=== PATIENT | male | born 1970 | race African-American/Black ===

== ENCOUNTER 2019-06-12 07:23 | Inpatient (IN) | payer OTHER ==
[~2019-06-12] VITALS: Ht 182.9 cm; Wt 108.0 kg
[2019-06-12 07:25] VITALS: BP 163/101
[2019-06-12] MEDS ORDERED: METFORMIN HCL850 M1 ORAL (07:27)
[2019-06-12] MEDS ORDERED: CEPHALEXIN500 MG ORAL (07:34)
[2019-06-12] MEDS ORDERED: LORATADINE10 M1 PO (07:34)
--- NOTE | 2019-06-12 08:02 | Emergency Room Report ---
History of Present Illness General Chief Complaint: Shortness of breath Source: Patient Present Illness HPI Patient is a 49-year-old male presented after increased shortness of breath and lower extremity swelling. He reports having increased cough for the past few days. He reports having a prior history of diabetes. He denies having any definite heart problems. He reports having significant swelling to both lower extremities for many weeks. He reports having increased scrotal swelling as well as some abdominal swelling. He denies any prior history of liver disease. Allergies: Coded Allergies: No Known Allergies (Unverified , 06/12/19) Patient History Reviewed Nursing Documentation: PMH: Agreed; PSxH: Agreed Nursing Documentation-PM Past Medical History: No History, Except For Hx Cardiac Problems: Yes Hx Hypertension: Yes Hx Diabetes: Yes Review of Systems All Other Systems: negative except mentioned in HPI Physical Exam Vital Signs Date Time Temp Pulse Resp B/P (MAP) Pulse Ox O2 Delivery O2 Flow Rate FiO2 06/12/19 07:22 99.3 107 16 176/118 (137) 99 Room Air Sp02 EP Interpretation: reviewed, normal General Appearance: normal inspection, alert, mild distress, Chronically Ill Head: atraumatic ENT: normal ENT inspection, hearing grossly normal, normal voice Neck: normal inspection, full range of motion, supple, no bony tend Respiratory: normal inspection, lungs clear, normal breath sounds, no respiratory distress, no retraction, no wheezing Cardiovascular #1: regular rate, rhythm, no edema Gastrointestinal: normal inspection, normal bowel sounds, non tender, soft, no guarding, no hernia Genitourinary: no CVA tenderness Musculoskeletal: normal inspection, back normal, normal range of motion Neurologic: normal inspection, alert, oriented x3, responsive, 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 Differential diagnosis include is not limited to myocardial infarction, congestive heart failure, pneumonia, myocarditis among others. Because of complexity of patient's case laboratory tests and imaging studies were ordered. Patient is noted to have some increased shortness of breath associated with lower extremity swelling and edema. EKG interpreted by me showed poor R wave progression as well as evidence of prior myocardial injury. He had bifascicular block. Patient was given diuretics as well as medications for elevated temperature. Patient was started on antibiotics. He appears to be in some mild respiratory distress. Patient will be hospitalized for further management of likely congestive heart failure. Dr. Tree Sommer was contacted for inpatient management Labs Test 06/12/19 07:30 White Blood Count 5.6 K/UL (4.8-10.8) Red Blood Count 4.07 M/UL (4.70-6.10) Hemoglobin 11.7 G/DL (14.2-18.0) Hematocrit 35.8 % (42.0-52.0) Mean Corpuscular Volume 88 FL (80-99) Mean Corpuscular Hemoglobin 28.7 PG (27.0-31.0) Mean Corpuscular Hemoglobin Concent 32.7 G/DL (32.0-36.0) Red Cell Distribution Width 12.9 % (11.6-14.8) Platelet Count 293 K/UL (150-450) Mean Platelet Volume 6.5 FL (6.5-10.1) Neutrophils (%) (Auto) 69.2 % (45.0-75.0) Lymphocytes (%) (Auto) 18.3 % (20.0-45.0) Monocytes (%) (Auto) 6.8 % (1.0-10.0) Eosinophils (%) (Auto) 4.0 % (0.0-3.0) Basophils (%) (Auto) 1.7 % (0.0-2.0) Prothrombin Time 12.0 SEC (9.30-11.50) Prothromb Time International Ratio 1.1 (0.9-1.1) Activated Partial Thromboplast Time 29 SEC (23-33) Sodium Level 140 MMOL/L (136-145) Potassium Level 3.8 MMOL/L (3.5-5.1) Chloride Level 102 MMOL/L (98-107) Carbon Dioxide Level 32 MMOL/L (21-32) Anion Gap 7 mmol/L (5-15) Blood Urea Nitrogen 20 mg/dL (7-18) Creatinine 2.3 MG/DL (0.55-1.30) Estimat Glomerular Filtration Rate 36.8 mL/min (>60) Glucose Level 318 MG/DL (74-106) Calcium Level 8.7 MG/DL (8.5-10.1) Total Bilirubin 0.3 MG/DL (0.2-1.0) Aspartate Amino Transf (AST/SGOT) 34 U/L (15-37) Alanine Aminotransferase (ALT/SGPT) 40 U/L (12-78) Alkaline Phosphatase 356 U/L (46-116) Troponin I 0.555 ng/mL (0.000-0.056) Pro-B-Type Natriuretic Peptide 9229 pg/mL (0-125) Total Protein 7.7 G/DL (6.4-8.2) Albumin 2.1 G/DL (3.4-5.0) Globulin 5.6 g/dL Albumin/Globulin Ratio 0.4 (1.0-2.7) EKG Diagnostic Results Rate: tachycardiac - 108 Rhythm: NSR ST Segments: no acute changes Last Vital Signs Date Time Temp Pulse Resp B/P (MAP) Pulse Ox O2 Delivery O2 Flow Rate FiO2 06/12/19 07:22 99.3 107 16 176/118 (137) 99 Room Air Status: improved Disposition: ADMITTED INPATIENT Condition: Serious Bhaskar Carrington MD Jun 12, 2019 08:01
[2019-06-12] MEDS ORDERED: cefTRIAXone 1 GM in NS 55 ML IV SCH (08:15)
[2019-06-12] MEDS ORDERED: Albuterol ud Inhalation HHN ONE (08:15)
[2019-06-12] MEDS ORDERED: Vancomycin 1.5 GM in NS 275 ML IVPB ONE (08:15)
[2019-06-12] MEDS ORDERED: Ipratropium 0.02% Inh Soln 2.5ml UD HHN ONE (08:15)
[2019-06-12 08:22] LABS: BASOPHILS % (AUTO) 1.7 % (0.0-2.0); HEMATOCRIT 35.8 % (42.0-52.0); HEMOGLOBIN 11.7 G/DL (14.2-18.0); LYMPHOCYTES % (AUTO) 18.3 % (20.0-45.0); MEAN CORPUSCULAR VOLUME 88 FL (80-99); MONOCYTES % (AUTO) 6.8 % (1.0-10.0); NEUTROPHILS % (AUTO) 69.2 % (45.0-75.0); PLATELET COUNT 293 K/UL (150-450); RED BLOOD COUNT 4.07 M/UL (4.70-6.10); RED CELL DISTRIBUTION WIDTH 12.9 % (11.6-14.8); WHITE BLOOD COUNT 5.6 K/UL (4.8-10.8)
[2019-06-12 08:27] LABS: INR 1.1 (0.9-1.1)
[2019-06-12 08:33] LABS: ANION GAP 7 mmol/L (5-15); BLOOD UREA NITROGEN 20 mg/dL (7-18); CALCIUM 8.7 MG/DL (8.5-10.1); CARBON DIOXIDE 32 MMOL/L (21-32); CHLORIDE 102 MMOL/L (98-107); CREATININE 2.3 MG/DL (0.55-1.30); POTASSIUM 3.8 MMOL/L (3.5-5.1); SODIUM 140 MMOL/L (136-145)
[2019-06-12 08:43] LABS: ALANINE AMINOTRANSFERASE 40 U/L (12-78); ALBUMIN 2.1 G/DL (3.4-5.0); ALBUMIN/GLOBULIN RATIO 0.4 (1.0-2.7); ALKALINE PHOSPHATASE 356 U/L (46-116); ASPARTATE AMINO TRANSFERASE 34 U/L (15-37); BILIRUBIN,TOTAL 0.3 MG/DL (0.2-1.0)
[2019-06-12] MEDS ORDERED: Aspirin Baby 81mg ORAL ONE (09:00)
[2019-06-12] MEDS ORDERED: Acetaminophen 500mg (ES) tab ORAL ONE (09:00)
[2019-06-12 09:29] LABS: APPEARANCE,URINE CLEAR; BILIRUBIN, URINE NEGATIVE (NEGATIVE); COLOR,URINE PALE YELLOW; GLUCOSE, URINE (UA) 4+ (NEGATIVE); KETONES,URINE NEGATIVE (NEGATIVE); LEUKOCYTE ESTERASE ,URINE NEGATIVE (NEGATIVE); NITRITE,URINE NEGATIVE (NEGATIVE); PH,URINE 6 (4.5-8.0); PROTEIN,URINE 4+ (NEGATIVE); UROBILINOGEN,URINE NORMAL MG/DL (0.0-1.0)
[2019-06-12 09:30] VITALS: BP 173/108
--- NOTE | 2019-06-12 10:06 | Diagnostic Imaging Report ---
EXAM: XR Chest, 1 View CLINICAL HISTORY: Shortness of breath TECHNIQUE: Frontal view of the chest. COMPARISON: No relevant prior studies available. FINDINGS: Lungs: Subsegmental atelectasis versus infiltrates in bilateral lung bases. Pulmonary vascular congestion. Pleural space: Bilateral mild to moderate layering pleural effusions. Heart: Mild Cardiomegaly Mediastinum: Unremarkable. Bones joints: Unremarkable. Tubes, lines and devices: Telemetry leads overlie the thorax. IMPRESSION: 1. Findings suggesting CHF, with mild cardiomegaly, pulmonary vascular congestion, and bilateral layering pleural effusions. 2. Subsegmental atelectasis versus infiltrates in bilateral lung bases.
[2019-06-12 11:02] VITALS: BP 130/77
[2019-06-12 11:46] VITALS: BP 134/80
[2019-06-12] MEDS ORDERED: Zolpidem 5mg tab ORAL PRN (12:15)
[2019-06-12] MEDS ORDERED: Milk of Magnesia 30ml Ud ORAL PRN (12:15)
[2019-06-12] MEDS: NovoLOG Insulin Flexpen SUBQ SCH ×3 (13:27→21:36)
[2019-06-12 15:45] VITALS: BP 118/84
[2019-06-12] MEDS ORDERED: Piperacillin/Tazobactam 3.375 GM in NS 110 ML IVPB SCH (17:00)
[2019-06-12] MEDS: Guaifenesin/DM 10ml syrup ORAL PRN (19:37)
[2019-06-12 20:00] VITALS: BP 159/107
--- NOTE | 2019-06-12 21:09 | History & Physical ---
History and Physical History & Physicial chart reviewed orders entered full note will be dictated Tree Sommer MD Jun 12, 2019 21:09
[2019-06-13] VITALS: BP 136/92
[2019-06-13 04:00] VITALS: BP 141/95
--- NOTE | 2019-06-13 05:00 | Consultation ---
DATE OF CONSULTATION: 06/12/2019 INFECTIOUS DISEASE CONSULTATION CONSULTING PHYSICIAN: Frederick Sommer M.D. PRIMARY ATTENDING PHYSICIAN: Tree Sommer M.D. REASON FOR CONSULT: Pneumonia. HISTORY OF PRESENT ILLNESS: The patient is a 49-year-old male, admitted today from home complaining of shortness of breath, cough, and leg swelling. The patient had these symptoms for a few weeks. He had a visit to a clinic and gets antibiotic for probable pneumonia without improvement. PAST MEDICAL HISTORY: Significant for diabetes mellitus and hypertension. ALLERGIES: No known drug allergies. MEDICATIONS: Got a dose of ceftriaxone in the ER. Getting aspirin, Lasix, Zosyn, famotidine, insulin, and Zofran. SOCIAL HISTORY: . Denies alcohol, drug abuse, or smoking. REVIEW OF SYSTEMS: No fever. No chills. Has nonproductive cough, shortness of breath, swelling of legs scrotum, abdominal distention. No problem passing urine. PHYSICAL EXAMINATION: VITAL SIGNS: Temperature 98, pulse 98, blood pressure 118/84. No fever since admission. HEAD AND NECK: [place] conjunctivae. No oral lesion. HEART: Normal rate. LUNGS: Clear. ABDOMEN: Distended. EXTREMITIES: Edema of legs. : Scrotal edema. LABORATORY DATA: Sodium 140, potassium 3.6, chloride 102, bicarb 32, BUN 20, and creatinine 2.6. Glucose is 318. Alkaline phosphatase is 356. Troponin 0.555. BNP is 9229. Urine toxicology is negative. UA - rbc's too numerous to count, wbc's 5 to 10. WBC 5.6, hemoglobin 11.7, hematocrit 35.8, and platelets 293,000. Chest x-ray shows cardiomegaly, pulmonary congestion, pleural effusion, subsegmental atelectasis versus infiltrate in bilateral lung bases. IMPRESSION: Atelectasis and/or pneumonia in right bases, has CHF, acute renal failure, elevated troponin, diabetes mellitus plus hyperglycemia, and hypertension. RECOMMENDATION: Discontinue Zosyn. Continue Rocephin. We will follow up the cultures and clinical course. So far, influenza test is negative. At the end of my exam, I thank Dr. Sommer for involving me in the care of this patient. Frederick Sommer M.D. DR: SHAWNA JOB#: [id number] CC: GEN
[2019-06-13] MEDS: NovoLOG Insulin Flexpen SUBQ SCH ×4 (06:30→21:36)
[2019-06-13 08:00] VITALS: BP 151/90
[2019-06-13] MEDS: cefTRIAXone 1 GM in D5W 55 ML IVPB SCH (08:11)
[2019-06-13] MEDS: Aspirin Baby 81mg ORAL SCH (08:12)
[2019-06-13 08:41] LABS: ANION GAP 10 mmol/L (5-15); BLOOD UREA NITROGEN 19 mg/dL (7-18); CALCIUM 8.3 MG/DL (8.5-10.1); CARBON DIOXIDE 28 MMOL/L (21-32); CHLORIDE 103 MMOL/L (98-107); CHOLESTEROL 163 MG/DL (< 200); CREATININE 2.2 MG/DL (0.55-1.30); HDL CHOLESTEROL 42 MG/DL (40-60); POTASSIUM 3.7 MMOL/L (3.5-5.1); SODIUM 141 MMOL/L (136-145); TRIGLYCERIDES 99 MG/DL (30-150)
--- NOTE | 2019-06-13 10:54 | General Progress Note ---
Assessment/Plan Problem List: (1) Elevated troponin ICD Codes: R79.89 - Other specified abnormal findings of blood chemistry SNOMED: 160991372, 299057920, 121914849 (2) Pulmonary edema ICD Codes: J81.1 - Chronic pulmonary edema SNOMED: 85754278 (3) Renal insufficiency ICD Codes: N28.9 - Disorder of kidney and ureter, unspecified SNOMED: 965668438, 597907280 (4) Pneumonitis ICD Codes: J18.9 - Pneumonia, unspecified organism SNOMED: 686273811, 538154206, 646946632 Assessment/Plan: abxs diuresis cardio consult may need renal biopsy Subjective Allergies: Coded Allergies: No Known Allergies (Unverified , 06/12/19) Subjective In NAD Objective Last 24 Hour Vital Signs Date Time Temp Pulse Resp B/P (MAP) Pulse Ox O2 Delivery O2 Flow Rate FiO2 06/13/19 09:00 Nasal Cannula 2.0 06/13/19 08:41 101.4 06/13/19 08:00 102.2 101 20 151/90 (110) 97 06/13/19 08:00 98 06/13/19 04:00 97.9 97 18 141/95 (110) 93 06/13/19 04:00 98 06/13/19 00:00 98.4 91 18 136/92 (107) 99 06/13/19 00:00 90 06/12/19 21:00 Nasal Cannula 2.0 06/12/19 20:00 106 06/12/19 20:00 100.6 107 20 159/107 (124) 94 06/12/19 16:00 100 06/12/19 15:47 2.0 06/12/19 15:45 98.0 98 20 118/84 (95) 98 06/12/19 12:00 87 06/12/19 11:46 98.9 89 20 134/80 (98) 96 06/12/19 11:44 Nasal Cannula 2.0 06/12/19 11:44 2.0 06/12/19 11:27 98.0 90 13 123/76 99 Nasal Cannula 2.0 28 06/12/19 11:02 98.1 89 17 130/77 99 Nasal Cannula 2.0 28 Intake and Output 06/12/19 06/13/19 19:00 07:00 Intake Total 810 ml Balance 810 ml Intake Oral 480 ml IV Total 330 ml # Voids 4 Laboratory Tests 06/13/19 06:55: Sodium Level 141, Potassium Level 3.7, Chloride Level 103, Carbon Dioxide Level 28, Anion Gap 10, Blood Urea Nitrogen 19H, Creatinine 2.2H, Estimat Glomerular Filtration Rate 38.8, Glucose Level 100#, Hemoglobin A1c 9.3H, Calcium Level 8.3L, Troponin I 0.595H, Triglycerides Level 99, Cholesterol Level 163, LDL Cholesterol 98, HDL Cholesterol 42, Cholesterol/HDL Ratio 3.9, Thyroid Stimulating Hormone (TSH) 1.305 Height (Feet): 6 Height (Inches): 0.00 Weight (Pounds): 238 Cardiovascular: normal rate Respiratory/Chest: lungs clear Edema: 4+ Generalized Tree Sommer MD Jun 13, 2019 10:54
[2019-06-13 11:43] VITALS: BP 122/84
--- NOTE | 2019-06-13 13:23 | Cardiology Progress Note ---
Subjective Subjective [id number] Objective Last 24 Hour Vital Signs Date Time Temp Pulse Resp B/P (MAP) Pulse Ox O2 Delivery O2 Flow Rate FiO2 06/13/19 12:00 88 06/13/19 11:43 100.0 84 20 122/84 (97) 99 06/13/19 09:00 Nasal Cannula 2.0 06/13/19 08:41 101.4 06/13/19 08:00 102.2 101 20 151/90 (110) 97 06/13/19 08:00 98 06/13/19 04:00 97.9 97 18 141/95 (110) 93 06/13/19 04:00 98 06/13/19 00:00 98.4 91 18 136/92 (107) 99 06/13/19 00:00 90 06/12/19 21:00 Nasal Cannula 2.0 06/12/19 20:00 106 06/12/19 20:00 100.6 107 20 159/107 (124) 94 06/12/19 16:00 100 06/12/19 15:47 2.0 06/12/19 15:45 98.0 98 20 118/84 (95) 98 Intake and Output 06/12/19 06/13/19 19:00 07:00 Intake Total 810 ml Balance 810 ml Intake Oral 480 ml IV Total 330 ml # Voids 4 Laboratory Tests Test 06/13/19 06:55 Sodium Level 141 MMOL/L (136-145) Potassium Level 3.7 MMOL/L (3.5-5.1) Chloride Level 103 MMOL/L (98-107) Carbon Dioxide Level 28 MMOL/L (21-32) Anion Gap 10 mmol/L (5-15) Blood Urea Nitrogen 19 mg/dL (7-18) H Creatinine 2.2 MG/DL (0.55-1.30) H Estimat Glomerular Filtration Rate 38.8 mL/min (>60) Glucose Level 100 MG/DL (74-106) # Hemoglobin A1c 9.3 % (4.3-6.0) H Calcium Level 8.3 MG/DL (8.5-10.1) L Troponin I 0.595 ng/mL (0.000-0.056) Triglycerides Level 99 MG/DL (30-150) Cholesterol Level 163 MG/DL (< 200) LDL Cholesterol 98 mg/dL (<100) HDL Cholesterol 42 MG/DL (40-60) Cholesterol/HDL Ratio 3.9 (3.3-4.4) Thyroid Stimulating Hormone (TSH) 1.305 uiU/mL (0.358-3.740) Microbiology Date/Time Source Procedure Growth Status 06/12/19 07:30 Nasal Nares - Final Complete 06/12/19 07:30 Nasal Nares - Final Complete Charmaine Echevarria MD Jun 13, 2019 13:23
[2019-06-13 16:00] VITALS: BP 157/87
--- NOTE | 2019-06-13 16:30 | History and Physical Report ---
DATE OF ADMISSION: 06/12/2019 CHIEF COMPLAINT: Cough, sputum production, and increased leg swelling. HISTORY OF PRESENT ILLNESS: This is a 49-year-old male, who has been coughing for about a week now and has had some shortness of breath, also increased leg swelling. It is not clear how long he has had leg edema, but he stated about 2 months although he has stasis changes. The patient was seen in the emergency room, was diagnosed with fluid overload and possibility of pneumonia and he was admitted. PAST MEDICAL HISTORY: History of diabetes mellitus, which has not been very well controlled. He denies hypertension although is in his records. He has not had any retinopathy, no laser surgery in his eyes. MEDICATIONS: Reviewed in the EMR. ALLERGIES: No known drug allergies. SOCIAL HISTORY: The patient lives at home with some family member. No history of smoking or alcohol abuse. REVIEW OF SYSTEMS: As above. PHYSICAL EXAMINATION: GENERAL: The patient is a moderately obese male, in no acute distress. VITAL SIGNS: Blood pressure is 118/84, pulse is 98, temperature 98.8. HEENT: [place] conjunctivae. Anicteric sclerae. NECK: Supple. LUNGS: Clear to auscultation. HEART: S1, S2 without murmurs or rubs. ABDOMEN: Soft, nontender. EXTREMITIES: Bilateral pedal edema with stasis changes. LABORATORY FINDINGS: CBC shows WBC of 5600, hematocrit is 35.8, hemoglobin is 7.7, platelets 293,000. Chemistry panel shows a sodium 140, potassium 3.8, chloride 102, BUN 20, creatinine 2.3, and blood sugar is 318. ProBNP was . Troponin was 0.55. ASSESSMENT: This is a 49-year-old male, who is admitted with shortness of breath, cough, possibility of pneumonia, but also has evidence of fluid overload, possibility of congestive heart failure. This factors includes diabetes and hypertension, but it has not been controlled. Also, his UA is showing blood red cells and also WBCs and significant proteinuria, so nephrotic syndrome has to be ruled out out, but the patient could have also nephritic syndrome. Based on the fact that he has also red cells and white cells in the urine. PLAN: The patient will be on antibiotics, IV diuretics. Cardiology consultation will be obtained. The patient UA needs to be repeated once he is treated with antibiotics and he may eventually need a kidney biopsy. If he continues to have active sediment in his urine, this can be done as an outpatient. Tree Sommer M.D. DR: KATE JOB#: [id number] CC:
--- NOTE | 2019-06-13 17:45 | Consultation ---
DATE OF CONSULTATION: 06/13/2019 CARDIOLOGY CONSULTATION This consultation is done as a coverage for Dr. Macario Black. REQUESTING PHYSICIAN: Tree Sommer M.D. REASON FOR CONSULTATION: Fluid overload, congestive heart failure. HISTORY OF PRESENT ILLNESS: Taken from the patient. The patient is lethargic and he has difficulties answering the question. He reported that he has worsening edema, which he had for a long time and he was not taking water pills as prescribed by his doctor. The patient stated he has hypertension and diabetes and when he asked his doctor why he has edema was told that because of diabetes. The patient denies any chest pain. The patient denies cardiac history, he was not seeing Cardiology in the past. The patient has orthopnea, lethargy, severe swelling of his abdomen, genitals, and lower extremity. ALLERGIES: Not reported. SOCIAL HISTORY: He denies using drugs, smoking, alcohol. REVIEW OF SYSTEMS: Negative for fever, but he has cough and he is very lethargic and tired. His ambulation is very limited, but he denies chest pain. PHYSICAL EXAMINATION: GENERAL: This is middle-aged male, looks very ill and lethargic. VITAL SIGNS: Blood pressure is 150/90, heart rate is 100 beats per minute, temperature is 102.2 max. His oxygen saturation on 2 liters is 97%. HEENT: PERRLA. EOMI. Lethargic. NECK: Neck veins are very distended. His carotid upstroke is palpable without bruit. LUNGS: He has crackles bilaterally and decreased breath sounds posteriorly. HEART: Regular and very distant S1. PMI is not palpable. ABDOMEN: Distended. Ascites is present. Genital is swollen. EXTREMITIES: Lower extremities had severe swelling with Cobweb appearance of the distal ankle and pretibial areas compatible with chronic edema. NEUROLOGIC: He moves all extremities, but he appears to be lethargic. LABORATORY AND DIAGNOSTIC DATA: EKG shows sinus rhythm with bifascicular block, left anterior and right bundle branch block. His chest x-ray showed pulmonary congestion, cardiomegaly, in bilateral lung bases. His labs are all reviewed and significant for creatinine 2.3 yesterday and 2.2 today. Hemoglobin A1c 9.3. His calcium is 8.3. His troponin is White count is 5.6, platelets are 293, and hemoglobin 11.7. His INR is 1.1. His urinalysis shows a lot of red cells. IMPRESSION AND RECOMMENDATION: The patient definitely has fluid overload, whether it is cardiac in origin is difficult to say. It is not impossible that he has cardiomyopathy, which precipitated right and left heart failure and kidney disease. It could be also that he has a primary renal problem caused by his diabetes and because of that, he developed edema. He has very abnormal urinalysis and workup for urinary etiology of his condition is in the process. He also is febrile so he might have infectious component to his kidney disease and fluid overload and he might be pulmonary or coming from the urine. From cardiac standpoint; however, the troponin elevation signifies cardiac damage versus chronic severe renal disease. His EKG does not show ischemic changes and he does not have chest pain. His cardiac function is yet to be assessed and based on that we are going to progress with further plan of management. The concern as the patient is lethargic is very high and I hope that he does not have encephalopathy associated with his congestive heart failure and kidney disease as well. He also has elevated alkaline phosphatase, which most likely correlating with congestive liver and not primary liver disease. I am going to order echocardiogram. I agree with Marcelle. We are going to follow this patient closely. Dr. Black is going to resume the care tomorrow. Thank you for your consultation. Charmaine Echevarria M.D. DR: Devora JOB#: [id number] CC:
[2019-06-13 20:00] VITALS: BP 145/84
[2019-06-13] MEDS: Guaifenesin/DM 10ml syrup ORAL PRN (22:55)
[2019-06-14 00:18] VITALS: BP 121/84
[2019-06-14 04:46] VITALS: BP 149/99
[2019-06-14] MEDS: NovoLOG Insulin Flexpen SUBQ SCH ×5 (06:39→21:00)
[2019-06-14 08:00] VITALS: BP 147/96
[2019-06-14] MEDS: Aspirin Baby 81mg ORAL SCH (09:22)
[2019-06-14] MEDS: cefTRIAXone 1 GM in D5W 55 ML IVPB SCH (09:23)
[2019-06-14] MEDS: Guaifenesin/DM 10ml syrup ORAL PRN ×2 (09:33→23:04)
--- NOTE | 2019-06-14 10:00 | Infectious Diseases Prog Note ---
Assessment/Plan Assessment/Plan IMPRESSION: Atelectasis and/or pneumonia in right bases, CHF, acute renal failure, elevated troponin, diabetes mellitus plus hyperglycemia, Hypertension. RECOMMENDATION: Continue Rocephin. We will follow up the cultures and clinical course repeat CXR Subjective ROS Limited/Unobtainable: No Constitutional: Reports: other - had fever yesterday Respiratory: Reports: productive cough Cardiovascular: Reports: other - orthopnea Genitourinary: Reports: no symptoms Neurologic: Reports: no symptoms Allergies: Coded Allergies: No Known Allergies (Unverified , 06/12/19) Objective Vital Signs Last 24 Hour Vital Signs Date Time Temp Pulse Resp B/P (MAP) Pulse Ox O2 Delivery O2 Flow Rate FiO2 06/14/19 08:00 98.4 95 20 147/96 (113) 94 06/14/19 04:46 98.0 91 12 149/99 (116) 96 06/14/19 04:00 90 06/14/19 00:18 98.6 87 12 121/84 (96) 98 06/14/19 00:00 89 06/13/19 21:00 Nasal Cannula 2.0 06/13/19 20:00 98.2 95 16 145/84 (104) 98 06/13/19 20:00 98 06/13/19 16:00 98.8 100 20 157/87 (110) 98 06/13/19 16:00 101 06/13/19 12:00 88 06/13/19 11:43 100.0 84 20 122/84 (97) 99 Height (Feet): 6 Height (Inches): 0.00 Weight (Pounds): 238 HEENT: mucous membranes moist Respiratory/Chest: lungs clear Cardiovascular: normal rate Abdomen: soft, non tender Genitourinary: other - scrotal edema Extremities: other - sever leg edema Neurologic/Psychiatric: alert, oriented x 3, responsive Microbiology Date/Time Source Procedure Growth Status 06/12/19 07:45 Blood Blood Culture - Preliminary NO GROWTH AFTER 24 HOURS Resulted 06/12/19 07:30 Blood Blood Culture - Preliminary NO GROWTH AFTER 24 HOURS Resulted 06/12/19 07:30 Nasal Nares - Final Complete 06/12/19 07:30 Nasal Nares - Final Complete Current Medications Medications (Trade) Dose Ordered Sig/Calin Route PRN Reason Start Time Stop Time Status Last Admin Dose Admin Acetaminophen (Tylenol) 650 mg Q4H PRN ORAL Mild Pain/Temp > 100.5 06/12/19 15:30 07/12/19 15:29 06/13/19 21:33 Aspirin (ASA) 81 mg DAILY ORAL 06/13/19 09:00 07/13/19 08:59 06/14/19 09:22 Ceftriaxone Sodium 1 gm/ Dextrose 55 ml @ 110 mls/hr DAILY IVPB 06/13/19 09:00 06/20/19 08:59 06/14/19 09:23 Dextrose (Dextrose 50%) 25 ml Q30M PRN IV Hypoglycemia 06/12/19 12:15 07/12/19 12:14 Dextrose (Dextrose 50%) 50 ml Q30M PRN IV Hypoglycemia 06/12/19 12:15 07/12/19 12:14 Famotidine (Pepcid) 40 mg DAILY ORAL 06/12/19 13:00 07/12/19 12:59 06/14/19 09:22 Furosemide (Lasix) 40 mg EVERY 12 HOURS IV 06/12/19 21:00 07/12/19 20:59 06/14/19 09:23 Guaifenesin/ Dextromethorphan (Robitussin DM Syrup) 10 ml Q4H PRN ORAL For Cough 06/12/19 19:45 07/12/19 19:44 06/14/19 09:33 Insulin Aspart (NovoLOG) BEFORE MEALS AND HS SUBQ 06/12/19 12:30 07/12/19 12:29 06/14/19 06:39 Magnesium Hydroxide (Mom) 30 ml HSPRN PRN ORAL Constipation 06/12/19 12:15 07/12/19 12:14 Ondansetron HCl (Zofran) 4 mg Q6H PRN IVP Nausea & Vomiting 06/12/19 12:15 07/12/19 12:14 Zolpidem Tartrate (Ambien) 5 mg HSPRN PRN ORAL Insomnia 06/12/19 12:15 06/19/19 12:14 Frederick Sommer MD Jun 14, 2019 10:00
[2019-06-14 11:59] VITALS: BP 141/88
--- NOTE | 2019-06-14 13:42 | General Progress Note ---
Assessment/Plan Problem List: (1) Elevated troponin ICD Codes: R79.89 - Other specified abnormal findings of blood chemistry SNOMED: 208221463, 007478751, 151132037 (2) Pulmonary edema ICD Codes: J81.1 - Chronic pulmonary edema SNOMED: 09651890 (3) Renal insufficiency ICD Codes: N28.9 - Disorder of kidney and ureter, unspecified SNOMED: 503102362, 466278159 (4) Pneumonitis ICD Codes: J18.9 - Pneumonia, unspecified organism SNOMED: 376822451, 800001825, 288009783 Assessment/Plan: abxs diuresis cardio consult may need renal biopsy Subjective Allergies: Coded Allergies: No Known Allergies (Unverified , 06/12/19) Subjective In NAD Objective Last 24 Hour Vital Signs Date Time Temp Pulse Resp B/P (MAP) Pulse Ox O2 Delivery O2 Flow Rate FiO2 06/14/19 11:59 98.4 89 18 141/88 (105) 97 06/14/19 11:42 87 06/14/19 09:00 Nasal Cannula 2.0 06/14/19 08:00 98.4 95 20 147/96 (113) 94 06/14/19 07:39 94 06/14/19 04:46 98.0 91 12 149/99 (116) 96 06/14/19 04:00 90 06/14/19 00:18 98.6 87 12 121/84 (96) 98 06/14/19 00:00 89 06/13/19 21:00 Nasal Cannula 2.0 06/13/19 20:00 98.2 95 16 145/84 (104) 98 06/13/19 20:00 98 06/13/19 16:00 98.8 100 20 157/87 (110) 98 06/13/19 16:00 101 Intake and Output 06/13/19 06/14/19 19:00 07:00 Intake Total 480 ml 150 ml Output Total 1150 ml Balance -670 ml 150 ml Intake Oral 480 ml 150 ml Output Urine Total 1150 ml # Voids 4 Height (Feet): 6 Height (Inches): 0.00 Weight (Pounds): 238 Cardiovascular: normal rate Respiratory/Chest: lungs clear Edema: 4+ Generalized Tree Sommer MD Jun 14, 2019 13:42
--- NOTE | 2019-06-14 14:17 | Cardiology Report ---
APPROVED REPORT EXAM: Two-dimensional and M-mode echocardiogram with Doppler and color Doppler. M-Mode DIMENSIONS IVSd1.3 (0.7-1.1cm)Left Atrium (MM)4.3 (1.6-4.0cm) LVDd5.1 (3.5-5.6cm)Aortic Root3.2 (2.0-3.7cm) PWd1.5 (0.7-1.1cm)Aortic Cusp Exc.2.0 (1.5-2.0cm) IVSs1.3 cm LVDs4.3 (2.5-4.0cm) PWs1.6 cm Normal left ventricular chamber size. Anteroseptal wall, inferoseptal wall and basal to apical lateral wall hypokinesia, ischemic cardiomyopathy cannot be excluded. Left ventricular ejection fraction is estimated to be 40-45%. Small circumfrential pericardial effusion . Large pleural effusio . Mild left atrial enlargement. Right cardiac chamber sizes are within normal limits. Aortic valve calcification with normal cusp excursion . Mildly thickened mitral valve leaflets with normal excursion. Mild mitral annulus and aortic root calcification. IVC at 2.2 cm without physiologic collapse suggestive of increased RA pressure. A color flow and spectral Doppler study was performed and revealed: Mitral inflow velocities indicates possible pseudo normalization pattern implying moderately elevated left atrial pressure (Grade II ) Moderate mitral regurgitation. Mild tricuspid regurgitation. Tricuspid systolic velocities suggests peak right ventricular systolic pressure of 31mmHg. Mild pulmonic regurgitation .
--- NOTE | 2019-06-14 14:41 | Diagnostic Imaging Report ---
Indication: Cough Comparison: 06/12/2019 A single view chest radiograph was obtained. Findings: Interstitial edema demonstrated. Bilateral pleural effusions noted. The heart is mildly enlarged. IMPRESSION: Mild CHF. No change from the prior study
[2019-06-14 16:00] VITALS: BP 137/85
[2019-06-14 20:00] VITALS: BP 156/103
--- NOTE | 2019-06-14 20:14 | Cardiology Progress Note ---
Assessment/Plan Assessment/Plan chf systolic dysfucntion renal fialure abn torp diuretic bp still ok renal function better echo noted lv dysfcuntion not severe enought to need acei Subjective Cardiovascular: Denies: chest pain Respiratory: Reports: cough, shortness of breath Gastrointestinal/Abdominal: Denies: abdominal pain Genitourinary: Denies: burning Objective Last 24 Hour Vital Signs Date Time Temp Pulse Resp B/P (MAP) Pulse Ox O2 Delivery O2 Flow Rate FiO2 06/14/19 16:00 98.7 82 20 137/85 (102) 97 06/14/19 15:37 83 06/14/19 11:59 98.4 89 18 141/88 (105) 97 06/14/19 11:42 87 06/14/19 09:00 Nasal Cannula 2.0 06/14/19 08:00 98.4 95 20 147/96 (113) 94 06/14/19 07:39 94 06/14/19 04:46 98.0 91 12 149/99 (116) 96 06/14/19 04:00 90 06/14/19 00:18 98.6 87 12 121/84 (96) 98 06/14/19 00:00 89 06/13/19 21:00 Nasal Cannula 2.0 General Appearance: no apparent distress, alert, obese Cardiovascular: normal rate Respiratory/Chest: decreased breath sounds Abdomen: normal bowel sounds, non tender, soft Extremities: moderate edema Intake and Output 06/13/19 06/14/19 19:00 07:00 Intake Total 480 ml 150 ml Output Total 1150 ml Balance -670 ml 150 ml Intake Oral 480 ml 150 ml Output Urine Total 1150 ml # Voids 4 Microbiology Date/Time Source Procedure Growth Status 06/12/19 07:45 Blood Blood Culture - Preliminary NO GROWTH AFTER 24 HOURS Resulted 06/12/19 07:30 Blood Blood Culture - Preliminary NO GROWTH AFTER 24 HOURS Resulted 06/12/19 07:30 Nasal Nares - Final Complete 06/12/19 07:30 Nasal Nares - Final Complete Macario Black MD Jun 14, 2019 20:14
[2019-06-15] VITALS: BP_SYST 140; BP_SYST 152; BP_DIAS 82; BP_DIAS 98
[2019-06-15 04:00] VITALS: BP 152/93
[2019-06-15] MEDS: NovoLOG Insulin Flexpen SUBQ SCH ×3 (06:40→17:26)
[2019-06-15 08:00] VITALS: BP 131/88
[2019-06-15] MEDS: cefTRIAXone 1 GM in D5W 55 ML IVPB SCH (08:47)
[2019-06-15] MEDS: Aspirin Baby 81mg ORAL SCH (08:47)
[2019-06-15] MEDS: Guaifenesin/DM 10ml syrup ORAL PRN (08:48)
[2019-06-15 09:36] LABS: HEMATOCRIT 34.2 % (42.0-52.0); HEMOGLOBIN 11.2 G/DL (14.2-18.0); MEAN CORPUSCULAR VOLUME 86 FL (80-99); MONOCYTES % (AUTO) 11.9 % (1.0-10.0); NEUTROPHILS % (AUTO) 56.2 % (45.0-75.0); PLATELET COUNT 231 K/UL (150-450); RED BLOOD COUNT 3.97 M/UL (4.70-6.10); RED CELL DISTRIBUTION WIDTH 12.3 % (11.6-14.8); WHITE BLOOD COUNT 5.2 K/UL (4.8-10.8)
[2019-06-15 10:01] LABS: ALANINE AMINOTRANSFERASE 23 U/L (12-78); ALBUMIN 1.6 G/DL (3.4-5.0); ALBUMIN/GLOBULIN RATIO 0.3 (1.0-2.7); ALKALINE PHOSPHATASE 227 U/L (46-116); ANION GAP 3 mmol/L (5-15); ASPARTATE AMINO TRANSFERASE 22 U/L (15-37); BILIRUBIN,TOTAL 0.3 MG/DL (0.2-1.0); BLOOD UREA NITROGEN 18 mg/dL (7-18); CARBON DIOXIDE 34 MMOL/L (21-32); CHLORIDE 99 MMOL/L (98-107); CREATININE 1.9 MG/DL (0.55-1.30); POTASSIUM 3.4 MMOL/L (3.5-5.1); SODIUM 136 MMOL/L (136-145)
[2019-06-15 12:00] VITALS: BP 122/73
[2019-06-15] MEDS ORDERED: FUROSEMIDE40 MG ORAL (13:10)
--- NOTE | 2019-06-15 13:15 | General Progress Note ---
Assessment/Plan Problem List: (1) Elevated troponin ICD Codes: R79.89 - Other specified abnormal findings of blood chemistry SNOMED: 501166347, 223927565, 884621668 (2) Pulmonary edema ICD Codes: J81.1 - Chronic pulmonary edema SNOMED: 88098880 (3) Renal insufficiency ICD Codes: N28.9 - Disorder of kidney and ureter, unspecified SNOMED: 506178631, 533717705 (4) Pneumonitis ICD Codes: J18.9 - Pneumonia, unspecified organism SNOMED: 773544324, 917580866, 978126796 Assessment/Plan: Po lasix Dc today Subjective Allergies: Coded Allergies: No Known Allergies (Unverified , 06/12/19) Subjective In NAD Objective Last 24 Hour Vital Signs Date Time Temp Pulse Resp B/P (MAP) Pulse Ox O2 Delivery O2 Flow Rate FiO2 06/15/19 08:00 98.8 87 18 131/88 (102) 96 06/15/19 04:00 81 06/15/19 04:00 97.4 89 18 152/93 (112) 95 06/15/19 00:00 93 06/15/19 00:00 97.8 94 18 140/98 (112) 95 06/14/19 21:00 Nasal Cannula 2.0 06/14/19 20:00 98.4 93 18 156/103 (120) 97 06/14/19 20:00 90 06/14/19 16:00 98.7 82 20 137/85 (102) 97 06/14/19 15:37 83 Intake and Output 06/14/19 06/15/19 19:00 07:00 Intake Total 360 ml 120 ml Balance 360 ml 120 ml Intake Oral 360 ml 120 ml # Voids 3 3 Laboratory Tests 06/15/19 09:30: White Blood Count 5.2, Red Blood Count 3.97L, Hemoglobin 11.2L, Hematocrit 34.2L , Mean Corpuscular Volume 86, Mean Corpuscular Hemoglobin 28.2, Mean Corpuscular Hemoglobin Concent 32.7, Red Cell Distribution Width 12.3, Platelet Count 231, Mean Platelet Volume 6.6, Neutrophils (%) (Auto) 56.2, Lymphocytes (% ) (Auto) 22.0, Monocytes (%) (Auto) 11.9H, Eosinophils (%) (Auto) 9.0H, Basophils (%) (Auto) 1.0, Sodium Level 136, Potassium Level 3.4L, Chloride Level 99, Carbon Dioxide Level 34H, Anion Gap 3L, Blood Urea Nitrogen 18, Creatinine 1.9H, Estimat Glomerular Filtration Rate 45.9, Glucose Level 179H, Calcium Level 8.0L, Total Bilirubin 0.3, Aspartate Amino Transf (AST/SGOT) 22, Alanine Aminotransferase (ALT/SGPT) 23, Alkaline Phosphatase 227H, Total Protein 6.6, Albumin 1.6L, Globulin 5.0, Albumin/Globulin Ratio 0.3L Height (Feet): 6 Height (Inches): 0.00 Weight (Pounds): 238 Tree Sommer MD Jun 15, 2019 13:15
--- NOTE | 2019-06-15 13:34 | Diagnostic Imaging Report ---
APPROVED REPORT CPT Code: 78738 Present Symptoms Shortness of breath BILATERAL: Imaging reveals a patent deep venous system bilaterally. There is no evidence of thrombus within the femoral, popliteal or tibial segments. The greater saphenous veins are also within normal limits. Doppler indicates normal spontaneous flow within these segments.
--- NOTE | 2019-06-15 13:48 | Infectious Diseases Prog Note ---
Assessment/Plan Assessment/Plan IMPRESSION: Pulmonary edema CHF, EF=40-45% acute renal failure, elevated troponin, diabetes mellitus plus hyperglycemia, Hypertension. RECOMMENDATION: Agree with discharge without antibiotic Case was D/W primary MD Subjective ROS Limited/Unobtainable: Yes Constitutional: Denies: fever Allergies: Coded Allergies: No Known Allergies (Unverified , 06/12/19) Objective Vital Signs Last 24 Hour Vital Signs Date Time Temp Pulse Resp B/P (MAP) Pulse Ox O2 Delivery O2 Flow Rate FiO2 06/15/19 09:00 Nasal Cannula 2.0 06/15/19 08:00 98.8 87 18 131/88 (102) 96 06/15/19 04:00 81 06/15/19 04:00 97.4 89 18 152/93 (112) 95 06/15/19 00:00 93 06/15/19 00:00 97.8 94 18 140/98 (112) 95 06/14/19 21:00 Nasal Cannula 2.0 06/14/19 20:00 98.4 93 18 156/103 (120) 97 06/14/19 20:00 90 06/14/19 16:00 98.7 82 20 137/85 (102) 97 06/14/19 15:37 83 Height (Feet): 6 Height (Inches): 0.00 Weight (Pounds): 238 General Appearance: no acute distress HEENT: mucous membranes moist Respiratory/Chest: lungs clear Cardiovascular: normal rate Abdomen: soft, non tender Extremities: other - edema of legs Neurologic/Psychiatric: other - sleeping Laboratory Tests Test 06/15/19 09:30 White Blood Count 5.2 K/UL (4.8-10.8) Red Blood Count 3.97 M/UL (4.70-6.10) L Hemoglobin 11.2 G/DL (14.2-18.0) L Hematocrit 34.2 % (42.0-52.0) L Mean Corpuscular Volume 86 FL (80-99) Mean Corpuscular Hemoglobin 28.2 PG (27.0-31.0) Mean Corpuscular Hemoglobin Concent 32.7 G/DL (32.0-36.0) Red Cell Distribution Width 12.3 % (11.6-14.8) Platelet Count 231 K/UL (150-450) Mean Platelet Volume 6.6 FL (6.5-10.1) Neutrophils (%) (Auto) 56.2 % (45.0-75.0) Lymphocytes (%) (Auto) 22.0 % (20.0-45.0) Monocytes (%) (Auto) 11.9 % (1.0-10.0) H Eosinophils (%) (Auto) 9.0 % (0.0-3.0) H Basophils (%) (Auto) 1.0 % (0.0-2.0) Sodium Level 136 MMOL/L (136-145) Potassium Level 3.4 MMOL/L (3.5-5.1) L Chloride Level 99 MMOL/L (98-107) Carbon Dioxide Level 34 MMOL/L (21-32) H Anion Gap 3 mmol/L (5-15) L Blood Urea Nitrogen 18 mg/dL (7-18) Creatinine 1.9 MG/DL (0.55-1.30) H Estimat Glomerular Filtration Rate 45.9 mL/min (>60) Glucose Level 179 MG/DL (74-106) H Calcium Level 8.0 MG/DL (8.5-10.1) L Total Bilirubin 0.3 MG/DL (0.2-1.0) Aspartate Amino Transf (AST/SGOT) 22 U/L (15-37) Alanine Aminotransferase (ALT/SGPT) 23 U/L (12-78) Alkaline Phosphatase 227 U/L (46-116) H Total Protein 6.6 G/DL (6.4-8.2) Albumin 1.6 G/DL (3.4-5.0) L Globulin 5.0 g/dL Albumin/Globulin Ratio 0.3 (1.0-2.7) L Current Medications Medications (Trade) Dose Ordered Sig/Calin Route PRN Reason Start Time Stop Time Status Last Admin Dose Admin Acetaminophen (Tylenol) 650 mg Q4H PRN ORAL Mild Pain/Temp > 100.5 06/12/19 15:30 07/12/19 15:29 06/15/19 08:48 Aspirin (ASA) 81 mg DAILY ORAL 06/13/19 09:00 07/13/19 08:59 06/15/19 08:47 Ceftriaxone Sodium 1 gm/ Dextrose 55 ml @ 110 mls/hr DAILY IVPB 06/13/19 09:00 06/20/19 08:59 06/15/19 08:47 Dextrose (Dextrose 50%) 25 ml Q30M PRN IV Hypoglycemia 06/12/19 12:15 07/12/19 12:14 Dextrose (Dextrose 50%) 50 ml Q30M PRN IV Hypoglycemia 06/12/19 12:15 07/12/19 12:14 Famotidine (Pepcid) 40 mg DAILY ORAL 06/12/19 13:00 07/12/19 12:59 06/15/19 08:47 Furosemide (Lasix) 40 mg EVERY 12 HOURS IV 06/12/19 21:00 07/12/19 20:59 06/15/19 08:46 Guaifenesin/ Dextromethorphan (Robitussin DM Syrup) 10 ml Q4H PRN ORAL For Cough 06/12/19 19:45 07/12/19 19:44 06/15/19 08:48 Insulin Aspart (NovoLOG) BEFORE MEALS AND HS SUBQ 06/12/19 12:30 07/12/19 12:29 06/15/19 12:19 Magnesium Hydroxide (Mom) 30 ml HSPRN PRN ORAL Constipation 06/12/19 12:15 07/12/19 12:14 Ondansetron HCl (Zofran) 4 mg Q6H PRN IVP Nausea & Vomiting 06/12/19 12:15 07/12/19 12:14 Potassium Chloride (K-Dur) 40 meq ONCE ORAL 06/15/19 13:00 06/15/19 14:00 06/15/19 13:14 Zolpidem Tartrate (Ambien) 5 mg HSPRN PRN ORAL Insomnia 06/12/19 12:15 06/19/19 12:14 Frederick Sommer MD Jun 15, 2019 13:48
--- NOTE | 2019-06-15 14:22 | General Progress Note ---
Assessment/Plan Problem List: (1) Elevated troponin ICD Codes: R79.89 - Other specified abnormal findings of blood chemistry SNOMED: 727416849, 130627943, 025469343 (2) Pulmonary edema ICD Codes: J81.1 - Chronic pulmonary edema SNOMED: 04088755 (3) Renal insufficiency ICD Codes: N28.9 - Disorder of kidney and ureter, unspecified SNOMED: 098861371, 159601148 (4) Pneumonitis ICD Codes: J18.9 - Pneumonia, unspecified organism SNOMED: 191855457, 602320727, 686455207 Assessment/Plan: Po lasix Dc today Subjective Allergies: Coded Allergies: No Known Allergies (Unverified , 06/12/19) Subjective better Objective Last 24 Hour Vital Signs Date Time Temp Pulse Resp B/P (MAP) Pulse Ox O2 Delivery O2 Flow Rate FiO2 06/15/19 14:01 98 Nasal Cannula 2.0 28 06/15/19 12:00 84 06/15/19 12:00 98.3 88 18 122/73 (89) 99 06/15/19 09:00 Nasal Cannula 2.0 06/15/19 08:00 108 06/15/19 08:00 98.8 87 18 131/88 (102) 96 06/15/19 04:00 81 06/15/19 04:00 97.4 89 18 152/93 (112) 95 06/15/19 00:00 93 06/15/19 00:00 97.8 94 18 140/98 (112) 95 06/14/19 21:00 Nasal Cannula 2.0 06/14/19 20:00 98.4 93 18 156/103 (120) 97 06/14/19 20:00 90 06/14/19 16:00 98.7 82 20 137/85 (102) 97 06/14/19 15:37 83 Intake and Output 06/14/19 06/15/19 19:00 07:00 Intake Total 360 ml 120 ml Balance 360 ml 120 ml Intake Oral 360 ml 120 ml # Voids 3 3 Laboratory Tests 06/15/19 09:30: White Blood Count 5.2, Red Blood Count 3.97L, Hemoglobin 11.2L, Hematocrit 34.2L , Mean Corpuscular Volume 86, Mean Corpuscular Hemoglobin 28.2, Mean Corpuscular Hemoglobin Concent 32.7, Red Cell Distribution Width 12.3, Platelet Count 231, Mean Platelet Volume 6.6, Neutrophils (%) (Auto) 56.2, Lymphocytes (% ) (Auto) 22.0, Monocytes (%) (Auto) 11.9H, Eosinophils (%) (Auto) 9.0H, Basophils (%) (Auto) 1.0, Sodium Level 136, Potassium Level 3.4L, Chloride Level 99, Carbon Dioxide Level 34H, Anion Gap 3L, Blood Urea Nitrogen 18, Creatinine 1.9H, Estimat Glomerular Filtration Rate 45.9, Glucose Level 179H, Calcium Level 8.0L, Total Bilirubin 0.3, Aspartate Amino Transf (AST/SGOT) 22, Alanine Aminotransferase (ALT/SGPT) 23, Alkaline Phosphatase 227H, Total Protein 6.6, Albumin 1.6L, Globulin 5.0, Albumin/Globulin Ratio 0.3L Height (Feet): 6 Height (Inches): 0.00 Weight (Pounds): 238 Cardiovascular: normal rate Respiratory/Chest: lungs clear Edema: 2+ Generalized Tree Sommer MD Jun 15, 2019 14:22
--- NOTE | 2019-06-15 14:39 | Cardiology Progress Note ---
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 bp still ok renal function better echo noted lv dysfunction not severe enough to need acei ekg Sinus rbbb and lafb has a pmd he will see her on fu Subjective Cardiovascular: Denies: chest pain Respiratory: Reports: cough, shortness of breath - is better Gastrointestinal/Abdominal: Denies: abdominal pain Genitourinary: Denies: burning Objective Last 24 Hour Vital Signs Date Time Temp Pulse Resp B/P (MAP) Pulse Ox O2 Delivery O2 Flow Rate FiO2 06/15/19 14:01 98 Nasal Cannula 2.0 28 06/15/19 12:00 84 06/15/19 12:00 98.3 88 18 122/73 (89) 99 06/15/19 09:00 Nasal Cannula 2.0 06/15/19 08:00 108 06/15/19 08:00 98.8 87 18 131/88 (102) 96 06/15/19 04:00 81 06/15/19 04:00 97.4 89 18 152/93 (112) 95 06/15/19 00:00 93 06/15/19 00:00 97.8 94 18 140/98 (112) 95 06/14/19 21:00 Nasal Cannula 2.0 06/14/19 20:00 98.4 93 18 156/103 (120) 97 06/14/19 20:00 90 06/14/19 16:00 98.7 82 20 137/85 (102) 97 06/14/19 15:37 83 General Appearance: no apparent distress, alert, obese Neck: supple Cardiovascular: normal rate Respiratory/Chest: decreased breath sounds - bases Abdomen: normal bowel sounds, non tender, soft Extremities: moderate edema Intake and Output 06/14/19 06/15/19 19:00 07:00 Intake Total 360 ml 120 ml Balance 360 ml 120 ml Intake Oral 360 ml 120 ml # Voids 3 3 Laboratory Tests Test 06/15/19 09:30 White Blood Count 5.2 K/UL (4.8-10.8) Red Blood Count 3.97 M/UL (4.70-6.10) L Hemoglobin 11.2 G/DL (14.2-18.0) L Hematocrit 34.2 % (42.0-52.0) L Mean Corpuscular Volume 86 FL (80-99) Mean Corpuscular Hemoglobin 28.2 PG (27.0-31.0) Mean Corpuscular Hemoglobin Concent 32.7 G/DL (32.0-36.0) Red Cell Distribution Width 12.3 % (11.6-14.8) Platelet Count 231 K/UL (150-450) Mean Platelet Volume 6.6 FL (6.5-10.1) Neutrophils (%) (Auto) 56.2 % (45.0-75.0) Lymphocytes (%) (Auto) 22.0 % (20.0-45.0) Monocytes (%) (Auto) 11.9 % (1.0-10.0) H Eosinophils (%) (Auto) 9.0 % (0.0-3.0) H Basophils (%) (Auto) 1.0 % (0.0-2.0) Sodium Level 136 MMOL/L (136-145) Potassium Level 3.4 MMOL/L (3.5-5.1) L Chloride Level 99 MMOL/L (98-107) Carbon Dioxide Level 34 MMOL/L (21-32) H Anion Gap 3 mmol/L (5-15) L Blood Urea Nitrogen 18 mg/dL (7-18) Creatinine 1.9 MG/DL (0.55-1.30) H Estimat Glomerular Filtration Rate 45.9 mL/min (>60) Glucose Level 179 MG/DL (74-106) H Calcium Level 8.0 MG/DL (8.5-10.1) L Total Bilirubin 0.3 MG/DL (0.2-1.0) Aspartate Amino Transf (AST/SGOT) 22 U/L (15-37) Alanine Aminotransferase (ALT/SGPT) 23 U/L (12-78) Alkaline Phosphatase 227 U/L (46-116) H Total Protein 6.6 G/DL (6.4-8.2) Albumin 1.6 G/DL (3.4-5.0) L Globulin 5.0 g/dL Albumin/Globulin Ratio 0.3 (1.0-2.7) L Objective Current Medications Medications (Trade) Dose Ordered Sig/Calin Route PRN Reason Start Time Stop Time Status Last Admin Dose Admin Acetaminophen (Tylenol) 650 mg Q4H PRN ORAL Mild Pain/Temp > 100.5 06/12/19 15:30 07/12/19 15:29 06/15/19 08:48 Aspirin (ASA) 81 mg DAILY ORAL 06/13/19 09:00 07/13/19 08:59 06/15/19 08:47 Ceftriaxone Sodium 1 gm/ Dextrose 55 ml @ 110 mls/hr DAILY IVPB 06/13/19 09:00 06/20/19 08:59 06/15/19 08:47 Dextrose (Dextrose 50%) 25 ml Q30M PRN IV Hypoglycemia 06/12/19 12:15 07/12/19 12:14 Dextrose (Dextrose 50%) 50 ml Q30M PRN IV Hypoglycemia 06/12/19 12:15 07/12/19 12:14 Famotidine (Pepcid) 40 mg DAILY ORAL 06/12/19 13:00 07/12/19 12:59 06/15/19 08:47 Furosemide (Lasix) 40 mg EVERY 12 HOURS IV 06/12/19 21:00 07/12/19 20:59 06/15/19 08:46 Guaifenesin/ Dextromethorphan (Robitussin DM Syrup) 10 ml Q4H PRN ORAL For Cough 06/12/19 19:45 07/12/19 19:44 06/15/19 08:48 Insulin Aspart (NovoLOG) BEFORE MEALS AND HS SUBQ 06/12/19 12:30 07/12/19 12:29 06/15/19 12:19 Magnesium Hydroxide (Mom) 30 ml HSPRN PRN ORAL Constipation 06/12/19 12:15 07/12/19 12:14 Ondansetron HCl (Zofran) 4 mg Q6H PRN IVP Nausea & Vomiting 06/12/19 12:15 07/12/19 12:14 Zolpidem Tartrate (Ambien) 5 mg HSPRN PRN ORAL Insomnia 06/12/19 12:15 06/19/19 12:14 Macario Black MD Jun 15, 2019 14:39
[2019-06-15 16:00] VITALS: BP 143/98
--- NOTE | 2019-06-15 16:58 | Cardiology Report ---
APPROVED REPORT EKG Measurement Heart [id number] Sinus tachycardia with 1st degree AV block with premature atrial complexes Possible Left atrial enlargement Left axis deviation Incomplete right bundle branch block Inferior infarct, age undetermined Anterolateral infarct, possibly acute Abnormal ECG
--- NOTE | 2019-06-17 09:08 | Discharge Summary ---
Discharge Summary Discharge Summary _ DATE OF ADMISSION: 06/12/2019 DATE OF DISCHARGE: 06/15/2019 DISCHARGED BY: Dr. Tree Sommer REASON FOR ADMISSION: 49 years old male with past medical history of diabetes mellitus, not well controlled, presented with cough for a week and shortness of breath as well as the leg swelling. Patient reported that he had stasis changes for the last 2 months. Patient denied any hypertension, although it was in his prior record. Laboratory work-up revealed no leukocytosis, hemoglobin 11.7 , hematocrit 25.8. BUN 20, creatinine 2.3 stable electrolytes. Glucose 318. Stable LFT. Pro BNP 9229. Troponin elevated 0.555. Lactic acid 1.0. Urine toxicology screen was negative. Urinalysis revealed proteinuria glucosuria, hematuria, mild pyuria and few bacteria. Chest x-ray demonstrated findings suggestive of congestive heart failure: mild cardiomegaly, pulmonary vascular congestion and bilateral layering pleural effusion. Subsegmental atelectasis versus infiltrate in bilateral lung bases. Patient subserqunetly admitted to telemetry floor for further management. CONSULTANTS: coal sampler Dr. Sofia RICKETTS specialist Dr. Frederick Sommer [facility]SE: Patient admitted to telemetry floor. Patient started on IV diuresis with close monitoring of volumes and cardiorenal parameters. Patient also started on empiric antibiotic. Senior Bioinformatics Specialist followed. Repeated troponin - 0.595 . Pattern of troponin elevation was not suggestive of acute coronary syndrome. EKG revealed right bundle branch block and left anterior fascicular block. Venous duplex bilateral lower extremity revealed no evidence of acute DVT. Echocardiogram demonstrated left ventricular ejection fraction of 40-45 %. Anteroseptal wall, inferoseptal wall and basal to apical lateral wall hypokinesia. Large pleural effusion. Moderate mitral regurgitation. Moderately elevated left atrial pressure grade 2. Right ventricular systolic pressure of 31. Antiplatelet therapy with aspirin provided. GI prophylaxis provided. Diuresis continued. Pain management was addressed as needed. No further chest pain. Left ventricular dysfunction was not severe enough to need ASHLEY inhibitor , as per coal sampler. Blood pressure remained stable. Lipid panel was stable. TSH was within normal limits. Supplemental oxygen titrated to keep pulse oximetry above 92%. Pulmonary toilet with bronchodilator provided as needed. Renal parameters and electrolytes were closely monitored. Electrolytes corrected as needed. Urinalysis showed hematuria and pyuria as well as a significant proteinuria. Patient was treated with antibiotic. Repeat urinalysis as outpatient. Patient eventually may need a kidney biopsy, which can be done as outpatient. Creatinine trended down from 2.3 to 1.9. Blood sugar was managed with sliding scale of insulin. Blood sugar stabilized. Hemoglobin A1c 9.3. Patient will need further optimization of anti-glycemic regimen as outpatient. Infectious disease specialist followed. Blood culture were negative. Follow-up chest x-ray revealed mild CHF , no evidence of consolidation . Patient remained afebrile , no leukocytosis. Patient clinically stabilized and was ready for discharge home. Outpatient follow-up with a primary care provider within 1 week. FINAL DIAGNOSES: Pulmonary edema Congestive heart failure with systolic dysfunction Cardiomyopathy with ejection fraction 40 to 45% Renal failure Pneumonitis Abnormal troponin Diabetes mellitus with hyperglycemia DISCHARGE MEDICATIONS: See Medication Reconciliation list. DISCHARGE INSTRUCTIONS: Patient was discharged home. Follow up with primary care provider in one week. I have been assigned to dictate discharge summary for this account. I was not involved in the patient's management. Ameena Carey NP Jun 17, 2019 09:08
== END 2019-06-15 20:00 | disposition home or self-care (01) | DRG 194 ==
LOC: EDBD 07:23 → EMR 07:56 → EDBEDREQ 11:08 → 2E 11:12
DX: I13.0 Hypertensive heart and chronic kidney disease with heart failure and stage 1 through stage 4 chronic kidney disease, or unspecified chronic kidney disease (principal); J18.9 Pneumonia, unspecified organism; N18.9 Chronic kidney disease, unspecified; N17.9 Acute kidney failure, unspecified; I50.20 Unspecified systolic (congestive) heart failure; E11.65 Type 2 diabetes mellitus with hyperglycemia; I42.9 Cardiomyopathy, unspecified
CPT/HCPCS: 36415; 71045; 80048; 80053; 80061; 80307; 81003; 82962; 83036; 83605; 83880; 84443; 84484; 85025; 85610; 85730; 86710; 87040; 93005; 93306; 93970; 94640; 96365; 96375; 99285; J1815; J8499